=== PATIENT | female | born 1995 | race Caucasian/White ===

== ENCOUNTER 2018-05-26 21:00 | Emergency (ER) | payer BC ==
[~2018-05-26] VITALS: Ht 165.1 cm; Wt 117.9 kg
[~2018-05-26 21:00] MED LIST: BIRTH CONTROL PILL PO; FLONASE ALLERG9.9 ML NS; ZITHROMAX250 MG PO; ZYRTEC10 MG PO
== END 2018-05-26 21:26 | disposition home or self-care (01) ==
LOC: ED 21:00
DX: M25.532 Pain in left wrist (principal); M25.531 Pain in right wrist; Z79.899 Other long term (current) drug therapy

== ENCOUNTER → 2021-11-25 | Outpatient (CLI) | payer OTHER | END | disposition home or self-care (01) | LOC: COVID19 16:12 | PROVIDERS: ATTEND Internal Medicine | DX: Z11.52 Encounter for screening for COVID-19 (principal) ==

== ENCOUNTER 2022-05-24 14:36 | Emergency (ER) | payer BC ==
[~2022-05-24] VITALS: Ht 165.1 cm; Wt 126.1 kg
== END 2022-05-24 17:55 | disposition home or self-care (01) ==
LOC: ED 14:36
DX: S93.401A Sprain of unspecified ligament of right ankle, initial encounter (principal); Z91.040 Latex allergy status; W10.8XXA Fall (on) (from) other stairs and steps, initial encounter; Y93.89 Activity, other specified; Y92.89 Other specified places as the place of occurrence of the external cause; Y99.8 Other external cause status